=== PATIENT | male | born 1970 | race American Indian/Alaskan Native ===

== ENCOUNTER 2017-04-01 13:03 | Inpatient (IN) | payer BC ==
[~2017-04-01] VITALS: Ht 177.8 cm; Wt 104.8 kg
[2017-04-01 14:06] LABS: EOSINOPHIL (%) 0.6 % (0-5); EOSINOPHIL COUNT 0.1 K/uL (0-0.3); HEMATOCRIT 43.8 % (38.0-50.0); IMMATURE GRANULOCYTE (%) 0.8 % (0.0-0.7); IMMATURE GRANULOCYTE COUNT 0.1 K/uL; INSTRUMENT ABS NEUTROPHIL CT 8.9 K/uL; LYMPHOCYTE COUNT 2.9 K/uL (1.0-2.8); MCH 32.4 PG (29.0-34.0); MCHC 34.5 G/DL (30.0-36.0); MEAN PLAT.VOLUME 9.4 uM^3 (9.0-12.4); MONOCYTE (%) 9.3 % (3-12); MONOCYTE COUNT 1.2 K/uL (0-0.8); NEUTROPHIL (%) 67.4 % (45-76); NEUTROPHIL COUNT 8.9 K/uL (1.8-6.4); PLATELET COUNT 280 K/uL (156-360); RBC DIS.WIDTH-CV 14.2 % (11.8-14.6); RBC DIS.WIDTH-SD 49.3 % (39-53); RED BLOOD COUNT 4.66 M/uL (4.00-5.50); WHITE BLOOD COUNT 13.2 K/uL (4.1-10.2)
[2017-04-01 14:34] LABS: CHLORIDE 102 mEq/L (99-109); POTASSIUM 3.7 mEq/L (3.7-5.4); SODIUM 136 mEq/L (136-147)
[2017-04-01 14:35] LABS: MAGNESIUM 2.4 mg/dL (1.3-2.7)
[2017-04-01 14:37] LABS: GLUCOSE 133 mg/dL (70-99)
[2017-04-01 14:38] LABS: ANION GAP 11 MEQ/L (2-14)
[2017-04-01 14:39] LABS: TOTAL BILIRUBIN 0.3 mg/dL (0.0-1.0)
[2017-04-01 14:40] LABS: SERUM ETHYL ALCOHOL < 10 mg/dL
[2017-04-01 14:41] LABS: ALKALINE PHOSPHATASE 121 IU/L (3-129); GFR ESTIMATE (CALCULATED) > 59 mL/min/
[2017-04-01 14:42] LABS: UREA NITROGEN (BUN) 14 mg/dL (9-23)
[2017-04-01 14:44] LABS: TROP-I INTERPRETATION NEGATIVE; TROPONIN-I 0.02 ng/mL (0.0-0.30)
[2017-04-01 14:52] LABS: ADD MIUA? YES; BILIRUBIN NEGATIVE; BLOOD SMALL; COLOR YELLOW ((YELLOW)); GLUCOSE (STRIP) NEGATIVE; KETONES 5; LEUKOCYTES NEGATIVE; NITRITE NEGATIVE; PROTEIN (STRIP) 100; SPECIFIC GRAVITY 1.018 (1.000-1.030); UROBILINOGEN 0.2 MG/DL (0.2-1.0)
[2017-04-01 15:02] LABS: BACTERIA NONE SEEN /HPF; EPITHELIAL CELLS NONE SEEN /HPF; HYALINE CASTS 20-30 /LPF; MUCUS 1+ /LPF; RED BLOOD CELLS 0-5 /HPF (0-5); UCUL ADDED? NO; WHITE BLOOD CELLS 0-5 /HPF (0-5)
[2017-04-01 15:04] LABS: BASE EXCESS 0.9 mEq/L (-3 to +3); CARBOXY HGB 3.2 % (0-5); PCO2 42 mm Hg (35-45); PO2 87 mm Hg (80-100)
[2017-04-01 15:05] LABS: COMMENTS - BLOOD GASES A+C+; DEVICE 980; FI02 100 %; MECHANICAL RATE 16 resp/min; MODE A/C; PEEP 5 CM/H20; SITE LR; TIDAL VOLUME 500 ML
[2017-04-01 15:08] LABS: AMPHETAMINE NEGATIVE (500 ng/mL); BARBITURATES NEGATIVE (200 ng/mL); BENZODIAZEPINES NEGATIVE (150 ng/mL); COCAINE NEGATIVE (150 ng/mL); INTERNAL CONTROLS VALID? YES; METHADONE NEGATIVE (200 ng/mL); METHAMPHETAMINE NEGATIVE (500 ng/mL); OPIATES (MORPHINE) NEGATIVE (100 ng/mL); OXYCODONE NEGATIVE (100 ng/mL); PHENCYCLIDINE NEGATIVE (25 ng/mL); PROPOXYPHENE NEGATIVE (300 ng/mL); THC CANNABINOIDS NEGATIVE (50 ng/mL); TRICYCLIC ANTIDEPRESSANTS NEGATIVE (300 ng/mL)
[2017-04-01] MEDS ORDERED: FLOMAX0.4 MG PO (19:05)
[2017-04-01] MEDS ORDERED: TEGRETOL200 MG PO (19:05)
[2017-04-01] MEDS ORDERED: KEPPRA750 MG PO (19:05)
[2017-04-01] MEDS ORDERED: FLONASE SENSIM9.9 ML BOTH NARES (19:06)
[2017-04-01] MEDS ORDERED: LIPITOR40 MG PO (19:06)
[2017-04-01] MEDS ORDERED: EFUDEX 5% CREAM25 GM TP (19:07)
[2017-04-01] MEDS ORDERED: DEBROX15 ML BOTH EARS (19:07)
[2017-04-01 20:00] VITALS: BP 115/74
[2017-04-01 20:37] VITALS: BP 115/74
[2017-04-01 21:00] VITALS: BP 112/64
[2017-04-01 21:36] LABS: METH RESISTANT S AUREUS PCR NEGATIVE (NEGATIVE)
[2017-04-01 21:39] LABS: PROBE CHECK PASS; SPECIMEN PROCESSING CONTROL PASS
[2017-04-01 22:00] VITALS: BP 110/65
[2017-04-01 23:00] VITALS: BP 103/61
[2017-04-02] VITALS (16 sets, daily range): BP systolic 83–124; BP diastolic 46–68
[2017-04-02 01:23] LABS: POINT-OF-CARE USER ID 609231305
[2017-04-02 05:27] LABS: POINT-OF-CARE METER ID UU13113731
[2017-04-02 05:55] LABS: HEMATOCRIT 40.7 % (38.0-50.0); MCH 32.5 PG (29.0-34.0); MCHC 33.9 G/DL (30.0-36.0); MCV 95.8 FL (86-99); PLATELET COUNT 227 K/uL (156-360); RBC DIS.WIDTH-CV 14.6 % (11.8-14.6); RBC DIS.WIDTH-SD 50.9 % (39-53); RED BLOOD COUNT 4.25 M/uL (4.00-5.50); WHITE BLOOD COUNT 10.4 K/uL (4.1-10.2)
[2017-04-02 06:20] LABS: ANION GAP 7 MEQ/L (2-14); CHLORIDE 104 MEQ/L (99-109); GFR ESTIMATE (CALCULATED) > 59 mL/min/; GLUCOSE 104 mg/dL (70-99); MAGNESIUM 2.4 mg/dl (1.3-2.7); POTASSIUM 3.6 MEQ/L (3.7-5.4); SAMPLE HEMOLYSIS CHECK 0; SAMPLE ICTERIC CHECK 0; SAMPLE LIPEMIA CHECK 0; SODIUM 140 MEQ/L (136-147); UREA NITROGEN (BUN) 12 mg/dL (9-23)
[2017-04-02 11:38] LABS: BASE EXCESS 4.4 mEq/L (-3 to +3); BICARBONATE 29.8 mEq/L (22-26); METHEMOGLOBIN 1.7 % (0-1.5); PCO2 46 mm Hg (35-45); pH 7.42 (7.35-7.45)
[2017-04-02 11:39] LABS: COMMENTS - BLOOD GASES A+C+; DEVICE 980 PB; FI02 40 %; MODE TC; PEEP 5 CM/H20; PO2 68 mm Hg (80-100); SITE RR; TOTAL RESP RATE 15 resp/min
[2017-04-02 13:33] LABS: POINT-OF-CARE METER ID UU13113731
[2017-04-03] VITALS: BP 117/55
[2017-04-03 04:00] VITALS: BP 100/58
[2017-04-03 06:27] LABS: HEMATOCRIT 39.2 % (38.0-50.0); MCH 33.1 PG (29.0-34.0); MCHC 33.9 G/DL (30.0-36.0); MCV 97.5 FL (86-99); MEAN PLAT.VOLUME 10.3 uM^3 (9.0-12.4); PLATELET COUNT 207 K/uL (156-360); RBC DIS.WIDTH-CV 14.5 % (11.8-14.6); RBC DIS.WIDTH-SD 51.9 % (39-53); RED BLOOD COUNT 4.02 M/uL (4.00-5.50); WHITE BLOOD COUNT 11.6 K/uL (4.1-10.2)
[2017-04-03 07:00] LABS: ANION GAP 7 MEQ/L (2-14); CHLORIDE 105 MEQ/L (99-109); GFR ESTIMATE (CALCULATED) > 59 mL/min/; GLUCOSE 94 mg/dL (70-99); MAGNESIUM 2.2 mg/dl (1.3-2.7); POTASSIUM 3.7 MEQ/L (3.7-5.4); SAMPLE HEMOLYSIS CHECK 0; SAMPLE ICTERIC CHECK 0; SAMPLE LIPEMIA CHECK 0; SODIUM 142 MEQ/L (136-147); UREA NITROGEN (BUN) 10 mg/dL (9-23)
[2017-04-03 08:00] VITALS: BP 109/58
[2017-04-03] MEDS ORDERED: PREDNISONE10 MG PO (08:23)
[2017-04-03 12:00] VITALS: BP 110/60
== END 2017-04-03 12:00 | disposition home or self-care (01) | DRG 208 ==
LOC: EDBD 13:03 → EME 13:03 → EDOF 17:54 → 4WEST 17:54
PROVIDERS: Emergency Medicine; Internal Medicine Nephrology
DX: J96.01 Acute respiratory failure with hypoxia (principal); G40.901 Epilepsy, unspecified, not intractable, with status epilepticus; J98.11 Atelectasis; G93.40 Encephalopathy, unspecified; D72.829 Elevated white blood cell count, unspecified; E78.5 Hyperlipidemia, unspecified; E87.2 Acidosis; R73.9 Hyperglycemia, unspecified
CPT/HCPCS: 36600; 70450; 71010; 80048; 80053; 80156; 81003; 82803; 82948; 83605; 83735; 84100; 84484; 85025; 85027; 87040; 87070; 87205; 87641; 93005; 94002; 94003; 94640; 94640 76; 94799; 99202; 99281; 99285; G0480; J1650; J1815; J1953; J2060; J2250; J2704; J2920; J3480; J7050; J7120; J7512; S0028